=== PATIENT | male | born 1945 | race Caucasian/White ===

== ENCOUNTER 2017-07-21 14:38 | Emergency (ER) | payer MEDICARE ==
[~2017-07-21] VITALS: Ht 175.3 cm; Wt 78.3 kg
[2017-07-21 14:42] VITALS: BP 120/77
== END 2017-07-21 16:59 | disposition home or self-care (01) ==
LOC: ED 16:55
DX: S16.1XXA Strain of muscle, fascia and tendon at neck level, initial encounter (principal); S39.012A Strain of muscle, fascia and tendon of lower back, initial encounter; W19.XXXA Unspecified fall, initial encounter; Y93.89 Activity, other specified; Y99.8 Other external cause status; Y92.009 Unspecified place in unspecified non-institutional (private) residence as the place of occurrence of the external cause
CPT/HCPCS: 70450; 72110; 72125; 99284

== ENCOUNTER 2017-08-20 10:20 | Emergency (ER) | payer SELFPAY ==
[~2017-08-20] VITALS: Ht 175.3 cm; Wt 79.5 kg
[2017-08-20 10:25] VITALS: BP 126/78
[2017-08-20] MEDS ORDERED: PROPARACAINE OPHTH 0.5%, 15ML ONE (10:35)
[2017-08-20] MEDS ORDERED: FLUORESCEIN OPHTHALMIC 1 MG STRIP ONE (10:35)
== END 2017-08-20 11:30 | disposition home or self-care (01) ==
LOC: ED 10:55
DX: H10.023 Other mucopurulent conjunctivitis, bilateral (principal)
CPT/HCPCS: 99283

== ENCOUNTER 2018-01-10 05:01 | Emergency (ER) | payer OTHER ==
[~2018-01-10] VITALS: Ht 175.3 cm; Wt 75.0 kg
[2018-01-10] MEDS ORDERED: LOPE1LIQ6 PO (05:12)
[2018-01-10] MEDS ORDERED: GABA600T2 PO (05:12)
[2018-01-10 06:43] VITALS: BP 141/75
== END 2018-01-10 07:03 | disposition home or self-care (01) ==
LOC: ED 06:22
DX: S00.03XA Contusion of scalp, initial encounter (principal); W06.XXXA Fall from bed, initial encounter; Y93.84 Activity, sleeping; Y92.89 Other specified places as the place of occurrence of the external cause; Y99.8 Other external cause status
CPT/HCPCS: 70450; 99284